=== PATIENT | male | born 1950 | race Hispanic/Latino ===

== ENCOUNTER 2019-02-23 10:43 | Emergency (ER) | payer MEDICARE, OTHER ==
[~2019-02-23] VITALS: Ht 162.6 cm; Wt 68.0 kg
[~2019-02-23 10:43] MED LIST: AMOXICILLIN/PO500 MG PO; ASPIRIN EC81 MG PO; ATORVASTATIN CA40 MG PO; CLOPIDOGREL75 MG PO; COLACE100 MG PO; DIABETIC MEDICATION; IBUPROFEN600 MG PO; LEVEMIR FL100 UNIT/M SC; LISINOPRIL5 MG PO; METFORMIN1000 MG PO; METOPROLOL SUCC1 TAB PO; MIRALAX3350 NF PO; NITROGLYCERIN0.4 MG SL; SYNJARDY 12.5-51 TAB PO; TAMSULOSIN HCL0.4 MG PO
[2019-02-23 11:27] LABS: HEMOGLOBIN 14.3 g/dl (14.0-18.0); IMMATURE GRANULOCYTES 0.2 % (0.0-5.0); MEAN CELL VOLUME 88.7 fL CALC (80.0-100.0); MEAN CORPUSCULAR HGB 29.5 pG CALC (26.0-32.0); MEAN CORPUSCULAR HGB CONC 33.3 g/L CALC (32.0-36.0); NEUT# 3.25 thou/uL (1.82-7.42); RED BLOOD COUNT 4.85 mill/uL (4.70-6.10); RED CELL DISTRI WIDTH 12.5 % (11.5-15.5)
[2019-02-23] MEDS ORDERED: LIPITOR10 M1 PO ×2 (11:37→11:58)
[2019-02-23] MEDS ORDERED: METFORMIN500 MG PO ×2 (11:41→11:58)
[2019-02-23] MEDS ORDERED: LEVEMIR100 UNIT/M SC ×2 (11:42→11:58)
[2019-02-23 11:45] LABS: ANION GAP 14 (6-22 (CALC)); BUN 19 mg/dL (8-23); BUN/CREATININE RATIO 26 (12-20 (CALC)); CARBON DIOXIDE 28 mmol/l (22-30); CHLORIDE 101 mmol/l (95-108); CREATININE 0.7 mg/dL (0.7-1.3); GFR > 60 ML/MIN (>=60 (CALC)); GFR FOR AFR.AMER. > 60 ML/MIN (>=60 (CALC)); POTASSIUM 4.8 mmol/l (3.5-5.1); SODIUM 138 mmol/l (137-146)
[2019-02-23] MEDS ORDERED: CLOPIDOGREL75 MG PO (11:58)
[2019-02-23] MEDS ORDERED: METOPROLOL SUCC1 TAB PO (11:58)
[2019-02-23 12:05] VITALS: BP 129/74
== END 2019-02-23 12:05 | disposition home or self-care (01) ==
LOC: ED 10:43
PROVIDERS: Family Medicine
DX: H52.03 Hypermetropia, bilateral (principal); E11.9 Type 2 diabetes mellitus without complications; I25.2 Old myocardial infarction; Z79.4 Long term (current) use of insulin; Z86.73 Personal history of transient ischemic attack (TIA), and cerebral infarction without residual deficits; H53.8 Other visual disturbances

== ENCOUNTER 2021-05-09 08:50 | Emergency (ER) | payer OTHER, MEDICARE, MEDICAID ==
[~2021-05-09] VITALS: Ht 162.6 cm; Wt 65.5 kg
[~2021-05-09 08:50] MED LIST changes: +LEVEMIR100 UNIT/M SC; +LIPITOR10 M1 PO; +METFORMIN500 MG PO
[2021-05-09] MEDS ORDERED: METFORMIN500 M2 PO (09:23)
[2021-05-09] MEDS ORDERED: PLAVIX75 MG PO (09:24)
[2021-05-09] MEDS ORDERED: TOPROL XL25 M1 PO (09:24)
[2021-05-09] MEDS ORDERED: NAPROXEN500 MG PO (10:30)
[2021-05-09 10:33] VITALS: BP 150/71
== END 2021-05-09 10:38 | disposition home or self-care (01) | DRG 552 ==
LOC: ED 08:50
DX: M47.816 Spondylosis without myelopathy or radiculopathy, lumbar region (principal); M79.644 Pain in right finger(s); M79.641 Pain in right hand; E11.9 Type 2 diabetes mellitus without complications; I25.2 Old myocardial infarction; V43.52XA Car driver injured in collision with other type car in traffic accident, initial encounter; Z86.73 Personal history of transient ischemic attack (TIA), and cerebral infarction without residual deficits; Z79.84 Long term (current) use of oral hypoglycemic drugs

== ENCOUNTER 2024-09-12 12:38 | Emergency (ER) | payer MEDICARE ==
[~2024-09-12] VITALS: Ht 162.6 cm; Wt 65.7 kg
[2024-09-12] VITALS (12 sets, daily range): BP systolic 133–177; BP diastolic 64–83
[~2024-09-12 12:38] MED LIST changes: +METFORMIN500 M2 PO; +NAPROXEN500 MG PO; +PLAVIX75 MG PO; +TOPROL XL25 M1 PO
[2024-09-12 13:04] LABS: BASO% 0.3 % (0-3); EOS% 1.2 % (0-8); HEMOGLOBIN 13.4 g/dl (14.0-18.0); IMMATURE GRANULOCYTES 0.1 % (0.0-5.0); LYMPH% 35.8 % (15-41); MEAN CELL VOLUME 87.8 fL CALC (80.0-100.0); MEAN CORPUSCULAR HGB 28.7 pG CALC (26.0-32.0); MEAN CORPUSCULAR HGB CONC 32.7 g/dL CAL (32.0-36.0); MONO% 9.7 % (2-13); NEUT# 3.64 thou/uL (1.82-7.42); NEUT% 52.9 % (42-76); RED BLOOD COUNT 4.67 mill/uL (4.70-6.10); RED CELL DISTRI WIDTH 12.2 % (11.5-15.5)
[2024-09-12 13:21] LABS: ALBUMIN 4.1 g/dL (3.2-5.0); BILIRUBIN, TOTAL 0.5 mg/dL (0.2-1.3); POTASSIUM 4.6 mmol/l (3.5-5.1); TOTAL PROTEIN 7.1 g/dL (6.3-8.2)
[2024-09-12] MEDS ORDERED: ASPIRIN 81 MG/TAB PO ONE (13:45)
== END 2024-09-12 16:10 | disposition home or self-care (01) ==
LOC: ED 12:38
PROVIDERS: Family Medicine
DX: R07.89 Other chest pain (principal); I10 Essential (primary) hypertension; E78.5 Hyperlipidemia, unspecified; I25.2 Old myocardial infarction; E11.9 Type 2 diabetes mellitus without complications; Z86.73 Personal history of transient ischemic attack (TIA), and cerebral infarction without residual deficits; Z79.84 Long term (current) use of oral hypoglycemic drugs